=== PATIENT | male | born 1995 | race Caucasian/White ===

== ENCOUNTER 2020-12-12 22:28 | Emergency (ER) | payer OTHER ==
[~2020-12-12] VITALS: Ht 182.9 cm; Wt 77.1 kg
[2020-12-12 22:32] VITALS: BP 129/86
--- NOTE | 2020-12-12 22:32 | NUR ---
to bed ambulatory
--- NOTE | 2020-12-12 23:10 | NUR ---
Dr. Parson examining patient.
--- NOTE | 2020-12-12 23:50 | NUR ---
X-Ray at bedside.
--- NOTE | 2020-12-12 23:59 | NUR ---
Pt states he accidentally cut left 4th finger around 1.5 hr ago. States site was bleeding a lot at first but has stopped with pressure applied. Finger noted with small laceration. Able to bend finger. Denies medical hx, denies taking any meds or blood thinners. VSS. A/Ox4, steady gait.
--- NOTE | 2020-12-13 00:21 | NUR ---
Dr. Parson at patient bedside
[2020-12-13 00:39] VITALS: BP 125/80
--- NOTE | 2020-12-13 00:39 | NUR ---
Patient discharged with v/s stable. Written and verbal after care instructions given and explained. Patient verbalized understanding. Ambulatory with steady gait. All questions addressed prior to discharge. Advised to follow up with PMD.
== END 2020-12-13 00:39 | disposition home or self-care (01) ==
LOC: MED 22:28
DX: S61.215A Laceration without foreign body of left ring finger without damage to nail, initial encounter (principal); W26.0XXA Contact with knife, initial encounter; Y93.89 Activity, other specified; Y92.89 Other specified places as the place of occurrence of the external cause; Y99.8 Other external cause status
CPT/HCPCS: 12001; 73140; 90471; 90715; 99283